=== PATIENT | female | born 1985 | race Caucasian/White ===

== ENCOUNTER 2017-06-13 13:30 | Emergency (ER) | payer MEDICAID, OTHER ==
[2017-06-13] MEDS: IBUPROFEN 800 MG TAB PO (16:25)
== END 2017-06-13 16:40 | disposition home or self-care (01) ==
LOC: FTE 13:30
DX: S50.11XA Contusion of right forearm, initial encounter (principal); X58.XXXA Exposure to other specified factors, initial encounter; Y92.9 Unspecified place or not applicable
CPT/HCPCS: 99283; Z7502